=== PATIENT | female | born 1960 | race African-American/Black ===

== ENCOUNTER 2022-07-29 16:06 | Emergency (ER) | payer BC, MEDICAID ==
[~2022-07-29] VITALS: Ht 165.1 cm; Wt 73.0 kg
[2022-07-29 16:39] LABS: BASOPHILS % 0.7 % (0.0-2.0); CHLORIDE 107 mEq/L (98-107); EOSINOPHILS % 1.8 % (0.0-5.0); HEMATOCRIT. 40.5 % (36.0-48.0); HEMOGLOBIN. 13.3 g/dL (12.0-16.0); LYMPHOCYTES % 37.4 % (20.0-50.0); MEAN CORPUSCULAR HEMOGLOBIN 30.5 pg (28.0-32.0); MEAN PLATELET VOLUME 9.6 fl (7.4-10.4); MONOCYTES % 5.1 % (2.0-8.0); PLATELET 313 x1000/uL (130-400); RED BLOOD CELL COUNT 4.36 mill/uL (4.2-5.4); RED CELL DISTRIBUTION WIDTH 14.9 % (11.6-14.6)
[2022-07-29 16:49] LABS: ETHANOL BLOOD < 10 mg/dL
[2022-07-29 18:01] LABS: CLARITY URINE CLEAR (CLEAR); COLOR URINE YELLOW (YELLOW); KETONES URINE NEGATIVE (NEGATIVE); LEUKOCYTE ESTERASE URINE NEGATIVE (NEGATIVE); NITRITE URINE NEGATIVE (NEGATIVE); OCCULT BLOOD URINE NEGATIVE (NEGATIVE); PROTEIN URINE 3+ (NEGATIVE); SPECIFIC GRAVITY URINE 1.015 (1.005-1.030); UROBILINOGEN URINE 0.2 E.U./dL (0.2-1.0)
[2022-07-30 06:00] VITALS: BP 133/80
== END 2022-07-30 09:31 | disposition short-term general hospital (02) ==
LOC: ER 16:06 → CANBEDREQ 07-30 09:05 → ER 07-30 09:31
DX: G45.9 Transient cerebral ischemic attack, unspecified (principal); I10 Essential (primary) hypertension; E78.00 Pure hypercholesterolemia, unspecified; Z20.822 Contact with and (suspected) exposure to COVID-19
CPT/HCPCS: 36415; 70450; 71045; 80053; 80320; 81003; 83605; 83690; 84484; 85025; 87426; 93005; 99285; C9803; G0480

== ENCOUNTER 2023-06-11 19:22 | Emergency (ER) | payer BC, MEDICAID ==
[~2023-06-11] VITALS: Ht 160 cm; Wt 73.0 kg
[2023-06-11 19:34] VITALS: BP 124/86; PULSE 90; RESP 18; TEMP 98.7; O2SAT 98
[2023-06-11] MEDS ORDERED: ACETAMINOPHEN 325MG TABLET PO ONE (20:15)
== END 2023-06-11 20:39 | disposition home or self-care (01) ==
LOC: ER 19:22
DX: S09.90XA Unspecified injury of head, initial encounter (principal); I48.91 Unspecified atrial fibrillation; E78.00 Pure hypercholesterolemia, unspecified; I10 Essential (primary) hypertension; Y08.89XA Assault by other specified means, initial encounter; Y93.89 Activity, other specified; Y92.89 Other specified places as the place of occurrence of the external cause; Y99.8 Other external cause status
CPT/HCPCS: 99283